=== PATIENT | male | born 1955 | race Caucasian/White ===

== ENCOUNTER 2017-09-10 15:27 | Emergency (ER) | payer OTHER ==
[~2017-09-10] VITALS: Ht 172.7 cm; Wt 120.0 kg
[~2017-09-10 15:27] MED LIST: ALAV10TA10 PO; CALC600T5 PO; CLOP75TA PO; CYAN100017 PO; FOLI1TAB4 PO; FURO1TAB62 PO; HYDR-3580 PO; LEVO25TA4 PO; LISI-515 PO; MAGN400T2 PO; MULT1TAB85 PO; OMEP20TA93 PO; OXCA300T PO; PAXI30TA7 PO; REFRDRO EACH EYE; SIMV20TA PO; SODI1TAB PO; TAMS5CAP PO; VITA100T2 PO
[2017-09-10 15:28] VITALS: BP 192/91; PULSE 78; RESP 18; TEMP 98; O2SAT 97
--- NOTE | 2017-09-10 18:21 | RADRPT ---
EXAM DATE/TIME: 09/10/2017 18:12 [facility] COMPARISON: No previous studies available for comparison. INDICATIONS : Right knee pain after fall. MEDICAL HISTORY : None. SURGICAL HISTORY : None. ENCOUNTER: Initial ACUITY: 1 day PAIN SCORE: 10/10 LOCATION: Right anterior knee. FINDINGS: Four view examination of the right knee demonstrates no evidence of fracture or dislocation. Bony mi neralization is normal. The articular surfaces are intact. The suprapatellar soft tissues have a no rmal configuration. CONCLUSION: No acute disease. Trung Davies MD on September 10, 2017 at 18:19 Board Certified Radiologist. This report was verified electronically.
--- NOTE | 2017-09-10 18:44 | RADRPT ---
EXAM DATE/TIME: 09/10/2017 18:18 [facility] COMPARISON: CT BRAIN W/O CONTRAST, July 08, 2016, 19:47. INDICATIONS : Fall, hit right side of forehead on metal object. RADIATION DOSE: 45.86 CTDIvol (mGy) MEDICAL HISTORY : Seizures. Stroke Cardiovascular diseaseSyncope, hypertension, COPD. SURGICAL HISTORY : None. ENCOUNTER: Initial ACUITY: 1 day PAIN SCALE: 4/10 LOCATION: Right frontal TECHNIQUE: Multiple contiguous axial images were obtained of the head. Using automated exposure control and adj ustment of the mA and/or kV according to patient size, radiation dose was kept as low as reasonably a chievable to obtain optimal diagnostic quality images. DICOM format image data is available electro nically for review and comparison. FINDINGS: There is atrophy and remote right basal ganglia lacunar infarct. No signs of acute infarct, hemorrhag e, or mass. No fractures. CONCLUSION: No acute disease. Trung Davies MD on September 10, 2017 at 18:41 Board Certified Radiologist. This report was verified electronically.
--- NOTE | 2017-09-10 18:57 | PD ---
HPI Chief Complaint: Fall Time Seen by Provider: 17:35 Travel History International Travel<30 days: No Contact w/Intl Traveler<30days: No Traveled to known affect area: No History of Present Illness HPI Patient is a 61 year old male who comes in after he fell today. He has history of TBI and arthritis and is prone to falls. He says he was taking his shirt off over his head and it got stuck and he fell forward hitting his head on the corner of their furniture. He also reports hitting his knee. He denies other injuries. He denies LOC. He denies chest pain or SOB. He says he is always dizzy and this has not changed. He thinks his last tetanus shot was within 5 years. His cleaned and bandaged his wounds prior to coming in. PFSH Past Medical History Hx Anticoagulant Therapy: Yes (PLAVIX) Arthritis: Yes Asthma: No Autoimmune Disease: No Bipolar Disorder: Yes Depression: Yes Cancer: No Cardiovascular Problems: Yes High Cholesterol: Yes Chest Pain: No COPD: Yes Cerebrovascular Accident: Yes Diabetes: No Diminished Hearing: Yes ([place]) Endocrine: No Gastrointestinal Disorders: Yes (HX OF HERNIA REPAIR) GERD: Yes Genitourinary: No Headaches: Yes Hypertension: Yes Immune Disorder: No Implanted Vascular Access Dvce: No Kidney Stones: No Musculoskeletal: Yes Neurologic: Yes (HX TIA) Psychiatric: Yes (PTSD) Reproductive: No Respiratory: Yes (COPD ) Migraines: Yes Renal Failure: No Seizures: Yes (EPILEPSY) Sleep Apnea: Yes Thyroid Disease: No Ulcer: No PNEUMOCCOCAL Vaccine (Year): 2 Past Surgical History Abdominal Surgery: Yes (ABD HERNIA REPAIR) AICD: No Cardiac Surgery: No Ear Surgery: No Endocrine Surgery: No Eye Surgery: No Genitourinary Surgery: No Insulin Pump: No Joint Replacement: No Oral Surgery: No Thoracic Surgery: No Other Surgery: Yes Social History Alcohol Use: Yes (OCCASIONALLY) Tobacco Use: No (CHEWING TOBACCO) Substance Use: No Allergies-Medications (Allergen,Severity, Reaction): Coded Allergies: bee venom protein (honey bee) (Unverified Allergy, Severe, ANAPHYLAXIS, 09/10/17) sertraline (Unverified Allergy, Severe, 09/10/17) Reported Meds & Prescriptions Reported Meds & Active Scripts Active Lasix (Furosemide) 20 Mg Tab 20 Mg PO DAILY Sodium Chloride 1 Gm Tab 1 Gm PO BID 14 Days Flomax (Tamsulosin HCl) 0.4 Mg Cap 0.4 Mg PO HS 30 Days Hydrocodone-Acetaminophen 7.5-325 mg Tab 1 Tab PO Q4-6H PRN Reported Refresh Opth Drops (Polyvinyl Alcohol-Povidone Opth Drops) 1.4-0.6% Drops 1-2 Drop EACH EYE PRN PRN Magnesium Oxide 400 Mg Tab 400 Mg PO DAILY B-12 (Cyanocobalamin) 1,000 Mcg Cap 1,000 Mcg PO DAILY Calcium (Calcium Carbonate) 600 Mg Tab 1 Tab PO DAILY Vitamin B-1 (Thiamine HCl) 100 Mg Tab 1 Tab PO DAILY Multivitamin Men (Multiple Vitamins W/ Minerals) 1 Tab Tab 1 Tab PO DAILY Folate (Folic Acid) 1 Mg Tab 1 Mg PO DAILY Alavert (Loratadine) 10 Mg Tab 10 Mg PO DAILY Lisinopril 20 Mg Tab 35 Tab PO DAILY Levothyroxine (Levothyroxine Sodium) 25 Mcg Tab 25 Mcg PO DAILY Omeprazole 20 Mg Tab 20 Mg PO DAILY Simvastatin 20 Mg Tab 0.5 Tab PO HS Clopidogrel (Clopidogrel Bisulfate) 75 Mg Tab 75 Mg PO DAILY Paxil (Paroxetine HCl) 30 Mg Tab 2 Tab PO HS Oxcarbazepine 300 Mg Tab 3 Tab PO BID Review of Systems General / Constitutional: No: Fever, Chills Eyes: No: Blurred Vision HENT: No: Headaches, Lightheadedness Cardiovascular: No: Chest Pain or Discomfort Respiratory: No: Shortness of Breath Gastrointestinal: No: Nausea, Vomiting Musculoskeletal: Positive: Pain, No: Myalgias Skin: Positive Other (abrasions) Neurologic: No: Weakness, Dizziness, Syncope Physical Exam Narrative GENERAL: Awake and alert, in no acute distress. SKIN: Abrasion to the right side of the forehead above the right eyebrow. Abrasion to the right knee. HEAD: Atraumatic. Normocephalic. EYES: Pupils equal and round. No scleral icterus. ENT: Mucous membranes pink and moist. NECK: Trachea midline. No JVD. No cervical spine tenderness. CARDIOVASCULAR: Regular rate and rhythm. No murmur appreciated. RESPIRATORY: No accessory muscle use. Clear to auscultation. Breath sounds equal bilaterally. MUSCULOSKELETAL: No obvious deformities. No clubbing. No cyanosis. No edema. Full ROM of his extremities. NEUROLOGICAL: Awake and alert. No obvious cranial nerve deficits. Motor grossly within normal limits. Normal speech. Data Data Last Documented VS Vital Signs Date Time Temp Pulse Resp B/P (MAP) Pulse Ox O2 Delivery O2 Flow Rate FiO2 09/10/17 15:28 98.0 78 18 192/91 (124) 97 Room Air Orders Orders Ct Brain W/O Iv Contrast(Rout) (09/10/17 ) Knee, Complete (4vws) (09/10/17 ) MDM Medical Decision Making Medical Screen Exam Complete: Yes Emergency Medical Condition: Yes Medical Record Reviewed: Yes Differential Diagnosis ICH vs contusion vs abrasions vs knee fracture vs knee sprain Narrative Course Patient is a 61-year-old male who comes in after a fall today. Exam shows abrasions to his forehead and his right knee. CT head performed shows no acute abnormalities. X-ray of the knee shows no acute abnormalities. Wounds were cleaned and dressed. He is advised follow-up with his doctor. Advised to return to the ED as needed for any worsening symptoms. Last 24 hours Impressions Knee X-Ray 09/10/17 0000 Signed Impressions: Service Date/Time: September 18:12 - CONCLUSION: No acute disease. Trung Davies MD Diagnosis Primary Impression: Fall Qualified Codes: W19.XXXA - Unspecified fall, initial encounter Additional Impression: Abrasion Patient Instructions: Abrasion (ED), Fall Prevention (ED), General Instructions Additional Instructions: Keep your wounds clean and dry. Follow-up with your doctor. Return to the ED as needed for any worsening symptoms. Disposition: 01 DISCHARGE HOME Condition: Stable Faviola Hudson MD Sep 10, 2017 18:57
== END 2017-09-10 19:07 | disposition home or self-care (01) ==
LOC: NEPD 15:27
DX: S00.81XA Abrasion of other part of head, initial encounter (principal); J44.9 Chronic obstructive pulmonary disease, unspecified; I10 Essential (primary) hypertension; W01.190A Fall on same level from slipping, tripping and stumbling with subsequent striking against furniture, initial encounter; Y92.003 Bedroom of unspecified non-institutional (private) residence as the place of occurrence of the external cause; Z91.81 History of falling; Z79.01 Long term (current) use of anticoagulants
CPT/HCPCS: 70450; 73564

== ENCOUNTER 2017-12-05 11:28 | Emergency (ER) | payer OTHER ==
[~2017-12-05] VITALS: Ht 172.7 cm; Wt 118.0 kg
[2017-12-05 11:30] VITALS: BP 85/49
[2017-12-05 11:50] VITALS: BP 92/55; PULSE 78; RESP 24; TEMP 97.8; O2SAT 94
[2017-12-05] MEDS ORDERED: SODIUM CHLOR 0.9% 1000 ML INJ 1,000 ML IV ONE ×2 (11:51→13:15)
[2017-12-05 11:57] VITALS: PULSE 77; RESP 24; O2SAT 96
[2017-12-05 11:58] VITALS: BP 92/55; PULSE 77; RESP 24; TEMP 97.8; O2SAT 96
[2017-12-05 12:00] VITALS: BP 95/52; PULSE 76; RESP 20; O2SAT 96
[2017-12-05] MEDS ORDERED: SODIUM CHLORIDE 0.9% FLUSH 10 ML FLUSH IVF PRN (12:00)
[2017-12-05 12:12] LABS: AUTOMATED NEUTROPHIL # 4.8 TH/MM3 (1.8-7.7); BASOPHIL % 0.5 % (0.0-2.0); EOSINOPHIL # 0.1 TH/MM3 (0-0.4); EOSINOPHIL % 1.1 % (0.0-4.0); HEMATOCRIT 36.1 % (39.0-51.0); HEMOGLOBIN 12.3 GM/DL (13.0-17.0); LYMPH % 22.6 % (9.0-44.0); LYMPHOCYTE # 1.6 TH/MM3 (1.0-4.8); MEAN CELL VOLUME 94.8 FL (80.0-100.0); MEAN CORPUSCULAR HEMOGLOBIN 32.4 PG (27.0-34.0); MEAN CORPUSCULAR HGB CONC 34.2 % (32.0-36.0); MEAN PLATELET VOLUME 6.8 FL (7.0-11.0); MONO % 7.4 % (0.0-8.0); MONOCYTE # 0.5 TH/MM3 (0-0.9); NEUT % 68.4 % (16.0-70.0); PLATELET COUNT 340 TH/MM3 (150-450); RED BLOOD COUNT 3.81 MIL/MM3 (4.50-5.90); RED CELL DISTRIBUTION WIDTH 13.1 % (11.6-17.2)
[2017-12-05 12:30] VITALS: BP 137/63; PULSE 84; RESP 18; O2SAT 98
--- NOTE | 2017-12-05 12:32 | PD ---
HPI Chief Complaint: Seizure Time Seen by Provider: 11:51 Travel History International Travel<30 days: No Contact w/Intl Traveler<30days: No Traveled to known affect area: No History of Present Illness HPI Patient is a 62-year-old male presenting to the emergency department after having a witnessed seizure. Patient was at the grocery store with his when he started feeling lightheaded, he went and sat down on a bench and had a seizure that was witnessed by employees at the grocery store. EMS stated the patient was pale and diaphoretic on arrival, there was no head injury. Patient was with his family yesterday and was drinking a consider amount of alcohol. His states that this is how he typically presents with seizures. He has 1- 2 seizures a month. Patient suffered a traumatic brain injury in 1979 seizure activity started after that injury. Symptom severity is moderate, no alleviating factors. Unknown aggravating factors. Symptom onset was fairly sudden. PFSH Past Medical History Hx Anticoagulant Therapy: Yes (Plavix) Arthritis: Yes Bipolar Disorder: Yes Depression: Yes High Cholesterol: Yes COPD: Yes Cerebrovascular Accident: Yes Diminished Hearing: Yes GERD: Yes Headaches: Yes Hypertension: Yes Neurologic: Yes (HX TIA) Psychiatric: Yes (PTSD) Migraines: Yes Seizures: Yes Sleep Apnea: Yes PNEUMOCCOCAL Vaccine (Year): 2 Past Surgical History Abdominal Surgery: Yes (ABD HERNIA REPAIR) Other Surgery: Yes Social History Alcohol Use: Yes (OCCASIONALLY) Tobacco Use: No (CHEWING TOBACCO) Substance Use: No Allergies-Medications (Allergen,Severity, Reaction): Coded Allergies: bee venom protein (honey bee) (Unverified Allergy, Severe, ANAPHYLAXIS, 09/10/17) sertraline (Unverified Allergy, Severe, 09/10/17) Reported Meds & Prescriptions Reported Meds & Active Scripts Active Lasix (Furosemide) 20 Mg Tab 20 Mg PO DAILY Sodium Chloride 1 Gm Tab 1 Gm PO BID 14 Days Flomax (Tamsulosin HCl) 0.4 Mg Cap 0.4 Mg PO HS 30 Days Reported Refresh Opth Drops (Polyvinyl Alcohol-Povidone Opth Drops) 1.4-0.6% Drops 1-2 Drop EACH EYE PRN PRN Magnesium Oxide 400 Mg Tab 400 Mg PO DAILY Calcium (Calcium Carbonate) 600 Mg Tab 1 Tab PO DAILY Lisinopril 20 Mg Tab 35 Tab PO DAILY Levothyroxine (Levothyroxine Sodium) 25 Mcg Tab 25 Mcg PO DAILY Omeprazole 20 Mg Tab 20 Mg PO DAILY Simvastatin 20 Mg Tab 0.5 Tab PO HS Clopidogrel (Clopidogrel Bisulfate) 75 Mg Tab 75 Mg PO DAILY Paxil (Paroxetine HCl) 30 Mg Tab 2 Tab PO HS Oxcarbazepine 300 Mg Tab 3 Tab PO BID Review of Systems Except as stated in HPI: all other systems reviewed are Neg Eyes: No: Blurred Vision HENT: No: Headaches Cardiovascular: No: Chest Pain or Discomfort Respiratory: No: Shortness of Breath Gastrointestinal: No: Nausea, Abdominal Pain Musculoskeletal: No: Myalgias Neurologic: Positive: Seizures, Other (Postictal), No: Weakness, Focal Abnormalities Physical Exam Narrative GENERAL: Well-developed, well-nourished, drowsy male. Presenting in no acute distress. SKIN: Warm and dry. HEAD: Atraumatic. Normocephalic. EYES: Pupils equal and round. No scleral icterus. No injection or drainage. ENT: No nasal bleeding or discharge. Mucous membranes pink and moist. NECK: Trachea midline. No JVD. CARDIOVASCULAR: Regular rate and rhythm. RESPIRATORY: No accessory muscle use. Clear to auscultation. Breath sounds equal bilaterally. GASTROINTESTINAL: Abdomen soft, non-tender, nondistended. Hepatic and splenic margins not palpable. MUSCULOSKELETAL: Extremities without clubbing, cyanosis, or edema. No obvious deformities. NEUROLOGICAL: Awake and alert. No obvious cranial nerve deficits. Motor grossly within normal limits. Five out of 5 muscle strength in the arms and legs. Normal speech. PSYCHIATRIC: Appropriate mood and affect; insight and judgment normal. Data Data Last Documented VS Vital Signs Date Time Temp Pulse Resp B/P (MAP) Pulse Ox O2 Delivery O2 Flow Rate FiO2 12/05/17 12:30 84 18 137/63 (87) 98 Nasal Cannula 2.00 12/05/17 11:58 97.8 Orders Orders Complete Blood Count With Diff (12/05/17 11:51) Electrocardiogram (12/05/17 ) Blood Glucose (12/05/17 11:51) Ecg Monitoring (12/05/17 11:51) Iv Access Insert/Monitor (12/05/17 11:51) Oximetry (12/05/17 11:51) Oxygen Administration (12/05/17 11:51) Comprehensive Metabolic Panel (12/05/17 11:51) Sodium Chlor 0.9% 1000 Ml Inj (Ns 1000 M (12/05/17 11:51) Sodium Chloride 0.9% Flush (Ns Flush) (12/05/17 12:00) Creatine Kinase (Cpk) (12/05/17 11:51) Sodium Chlor 0.9% 1000 Ml Inj (Ns 1000 M (12/05/17 13:15) Labs Laboratory Tests Test 12/05/17 12:01 White Blood Count 7.0 TH/MM3 Red Blood Count 3.81 MIL/MM3 Hemoglobin 12.3 GM/DL Hematocrit 36.1 % Mean Corpuscular Volume 94.8 FL Mean Corpuscular Hemoglobin 32.4 PG Mean Corpuscular Hemoglobin Concent 34.2 % Red Cell Distribution Width 13.1 % Platelet Count 340 TH/MM3 Mean Platelet Volume 6.8 FL Neutrophils (%) (Auto) 68.4 % Lymphocytes (%) (Auto) 22.6 % Monocytes (%) (Auto) 7.4 % Eosinophils (%) (Auto) 1.1 % Basophils (%) (Auto) 0.5 % Neutrophils # (Auto) 4.8 TH/MM3 Lymphocytes # (Auto) 1.6 TH/MM3 Monocytes # (Auto) 0.5 TH/MM3 Eosinophils # (Auto) 0.1 TH/MM3 Basophils # (Auto) 0.0 TH/MM3 CBC Comment DIFF FINAL Differential Comment Blood Urea Nitrogen 15 MG/DL Creatinine 1.47 MG/DL Random Glucose 116 MG/DL Total Protein 6.8 GM/DL Albumin 3.5 GM/DL Calcium Level 8.6 MG/DL Alkaline Phosphatase 132 U/L Aspartate Amino Transf (AST/SGOT) 20 U/L Alanine Aminotransferase (ALT/SGPT) 29 U/L Total Bilirubin 0.2 MG/DL Sodium Level 128 MEQ/L Potassium Level 3.7 MEQ/L Chloride Level 92 MEQ/L Carbon Dioxide Level 19.9 MEQ/L Anion Gap 16 MEQ/L Estimat Glomerular Filtration Rate 49 ML/MIN Total Creatine Kinase 60 U/L [facility] Medical Decision Making Medical Screen Exam Complete: Yes Emergency Medical Condition: Yes Medical Record Reviewed: Yes Interpretation(s) Laboratory Tests Test 12/05/17 12:01 White Blood Count 7.0 TH/MM3 Red Blood Count 3.81 MIL/MM3 Hemoglobin 12.3 GM/DL Hematocrit 36.1 % Mean Corpuscular Volume 94.8 FL Mean Corpuscular Hemoglobin 32.4 PG Mean Corpuscular Hemoglobin Concent 34.2 % Red Cell Distribution Width 13.1 % Platelet Count 340 TH/MM3 Mean Platelet Volume 6.8 FL Neutrophils (%) (Auto) 68.4 % Lymphocytes (%) (Auto) 22.6 % Monocytes (%) (Auto) 7.4 % Eosinophils (%) (Auto) 1.1 % Basophils (%) (Auto) 0.5 % Neutrophils # (Auto) 4.8 TH/MM3 Lymphocytes # (Auto) 1.6 TH/MM3 Monocytes # (Auto) 0.5 TH/MM3 Eosinophils # (Auto) 0.1 TH/MM3 Basophils # (Auto) 0.0 TH/MM3 CBC Comment DIFF FINAL Differential Comment Blood Urea Nitrogen 15 MG/DL Creatinine 1.47 MG/DL Random Glucose 116 MG/DL Total Protein 6.8 GM/DL Albumin 3.5 GM/DL Calcium Level 8.6 MG/DL Alkaline Phosphatase 132 U/L Aspartate Amino Transf (AST/SGOT) 20 U/L Alanine Aminotransferase (ALT/SGPT) 29 U/L Total Bilirubin 0.2 MG/DL Sodium Level 128 MEQ/L Potassium Level 3.7 MEQ/L Chloride Level 92 MEQ/L Carbon Dioxide Level 19.9 MEQ/L Anion Gap 16 MEQ/L Estimat Glomerular Filtration Rate 49 ML/MIN Total Creatine Kinase 60 U/L Vital Signs Date Time Temp Pulse Resp B/P (MAP) Pulse Ox O2 Delivery O2 Flow Rate FiO2 12/05/17 11:58 97.8 77 24 92/55 (67) 96 Room Air 2.00 12/05/17 11:58 77 24 95 Nasal Cannula 2.00 12/05/17 11:57 95 Nasal Cannula 2.00 12/05/17 11:57 77 24 96 Nasal Cannula 2.00 12/05/17 11:50 97.8 78 24 92/55 (67) 94 Differential Diagnosis Seizure versus metabolic abnormality versus cardiac arrhythmia versus syncopal episode versus other Narrative Course Patient is a 62-year-old male that presented to the emergency department after having a witnessed seizure at a grocery store this morning. Seizure today was consistent with prior seizures, there was no status epilepticus. On arrival his blood pressure was 85 systolic. EMS stated patient was diaphoretic and pale on their arrival. Including the differential could be a syncopal episode secondary to hypotension. Labs and imaging ordered and pending. is at bedside. IV fluid ordered.. BP reassessed at 109 systolic at 1230 BP has been stable, systolic is in the 140s. Patient was reassessed and he is easily arousable, he states that he feels better. CBC with no acute findings Chemistry with a sodium of 128, anion gap 16, creatinine 1.47. Patient was given a total of 2 L of IV fluids. Discussed patient's presentation and findings with my attending physician. Patient will be discharged home with his . He is to follow-up with his primary doctor and neurologist at the [facility]. He is to continue home medications as previously prescribed. They verbalized understanding of instructions. Patient is stable for discharge. Diagnosis Primary Impression: Seizure Additional Impression: Hyponatremia Referrals: Neurologist 2 days Patient Instructions: General Instructions, Recurrent Seizures in Adults ([place]) Additional Instructions: Avoid use of alcohol Continue home medications as previously prescribed Follow-up with your neurologist Follow-up with your primary doctor Return to emergency department for any new or worsening symptoms Med/Other Pt SpecificInfo: No Change to Meds Disposition: 01 DISCHARGE HOME Condition: Stable Silva Tovar Dec 05, 2017 12:32
--- NOTE | 2017-12-05 12:42 | PD ---
Physical Exam Date Seen by Provider: Dec 05, 2017 Narrative This patient presents status post seizure. He has a known seizure disorder. His reported that he did some drinking yesterday which may have lowered his seizure threshold. He reportedly has seizures on a fairly regular basis. Patient is now awake and alert and fully oriented. He reports no injury as the result of his seizure. Data Data Last Documented VS Vital Signs Date Time Temp Pulse Resp B/P (MAP) Pulse Ox O2 Delivery O2 Flow Rate FiO2 12/05/17 12:30 84 18 137/63 (87) 98 Nasal Cannula 2.00 12/05/17 11:58 97.8 Orders Orders Complete Blood Count With Diff (12/05/17 11:51) Electrocardiogram (12/05/17 ) Blood Glucose (12/05/17 11:51) Ecg Monitoring (12/05/17 11:51) Iv Access Insert/Monitor (12/05/17 11:51) Oximetry (12/05/17 11:51) Oxygen Administration (12/05/17 11:51) Comprehensive Metabolic Panel (12/05/17 11:51) Sodium Chlor 0.9% 1000 Ml Inj (Ns 1000 M (12/05/17 11:51) Sodium Chloride 0.9% Flush (Ns Flush) (12/05/17 12:00) Creatine Kinase (Cpk) (12/05/17 11:51) Labs Laboratory Tests Test 12/05/17 12:01 White Blood Count 7.0 TH/MM3 Red Blood Count 3.81 MIL/MM3 Hemoglobin 12.3 GM/DL Hematocrit 36.1 % Mean Corpuscular Volume 94.8 FL Mean Corpuscular Hemoglobin 32.4 PG Mean Corpuscular Hemoglobin Concent 34.2 % Red Cell Distribution Width 13.1 % Platelet Count 340 TH/MM3 Mean Platelet Volume 6.8 FL Neutrophils (%) (Auto) 68.4 % Lymphocytes (%) (Auto) 22.6 % Monocytes (%) (Auto) 7.4 % Eosinophils (%) (Auto) 1.1 % Basophils (%) (Auto) 0.5 % Neutrophils # (Auto) 4.8 TH/MM3 Lymphocytes # (Auto) 1.6 TH/MM3 Monocytes # (Auto) 0.5 TH/MM3 Eosinophils # (Auto) 0.1 TH/MM3 Basophils # (Auto) 0.0 TH/MM3 CBC Comment DIFF FINAL Differential Comment MDM Supervised Visit with MU: Yes Narrative Course I, Dr. Ohara, have reviewed the advance practice practitioner's documentation and am in agreement, met with the patient face to face, made the diagnosis, and the medical decision making was done by me. *My assessment and Findings: Awake and alert and fully oriented. Please see Silva [facility] PAY PER CLICK STRATEGIST's note for results of laboratory and radiographic evaluation, ED course, final diagnosis and disposition Romana Ohara MD Dec 05, 2017 12:42
[2017-12-05 12:48] LABS: ALBUMIN 3.5 GM/DL (3.4-5.0); ALT (GPT) 29 U/L (12-78); AST (GOT) 20 U/L (15-37); BICARBONATE 19.9 MEQ/L (21.0-32.0); BLOOD UREA NITROGEN 15 MG/DL (7-18); CALCIUM 8.6 MG/DL (8.5-10.1); CHLORIDE 92 MEQ/L (98-107); CREATININE 1.47 MG/DL (0.60-1.30); GLOMERULAR FILTRATION RATE 49 ML/MIN (>89); GLUCOSE,RANDOM 116 MG/DL (74-106); SODIUM (NA) 128 MEQ/L (136-145)
[2017-12-05 12:50] LABS: ALKALINE PHOSPHATASE 132 U/L (45-117); TOTAL BILIRUBIN ADULT 0.2 MG/DL (0.2-1.0); TOTAL PROTEIN 6.8 GM/DL (6.4-8.2)
--- NOTE | 2017-12-06 12:18 | EKG ---
Date Performed: 12/05/2017 Time Performed: 11:46:54 PTAGE: 62 years EKG: Sinus rhythm INCOMPLETE RIGHT BUNDLE BRANCH BLOCK BORDERLINE ECG PREVIOUS TRACING 08/15/2016 11:34.37 Since the previous tracing, no significant change noted DOCTOR: Gary Saha Interpretating Date/Time 12/06/2017 12:15:58
== END 2017-12-05 15:22 | disposition home or self-care (01) ==
LOC: NEPC 11:28
DX: G40.909 Epilepsy, unspecified, not intractable, without status epilepticus (principal); E87.1 Hypo-osmolality and hyponatremia; I45.10 Unspecified right bundle-branch block; I10 Essential (primary) hypertension; E78.00 Pure hypercholesterolemia, unspecified; J44.9 Chronic obstructive pulmonary disease, unspecified; F43.10 Post-traumatic stress disorder, unspecified; F31.9 Bipolar disorder, unspecified; F17.220 Nicotine dependence, chewing tobacco, uncomplicated; Z86.73 Personal history of transient ischemic attack (TIA), and cerebral infarction without residual deficits; Z88.8 Allergy status to other drugs, medicaments and biological substances; Z79.899 Other long term (current) drug therapy
CPT/HCPCS: 80053; 82550; 85025; 93005; 99284; J7030